=== PATIENT | male | born 1945 | race Caucasian/White ===

== ENCOUNTER 2018-07-06 13:07 | Day surgery (SDC) | END 2018-07-06 14:47 | disposition home or self-care (01) ==

== ENCOUNTER 2019-01-26 06:09 | Day surgery (SDC) | payer MEDICARE, BC ==
[2019-01-26] VITALS (15 sets, daily range): BP systolic 130–157; BP diastolic 63–87; PULSE 62–72; RESP 14–18; Ht 170.2 cm; Wt 74.0 kg
[~2019-01-26] VITALS: Ht 170.2 cm; Wt 74.0 kg
--- NOTE | 2019-01-26 07:12 | HPN ---
Date/Time of Note Date/Time of Note DATE: 01/26/19 TIME: 07:12 Interval H&P Admission Note Pt. seen H&P reviewed: No system changes GWEN TUTTLE MD Jan 26, 2019 07:12
[2019-01-26] MEDS ORDERED: THROMBIN 5000 UNIT VIAL ONE (07:23)
[2019-01-26] MEDS ORDERED: GELATIN SIZE 100 SPONGE ONE (07:23)
[2019-01-26] MEDS ORDERED: LIDOCAINE 1% (MPF) 30 ML INJ ONE (07:24)
[2019-01-26] MEDS ORDERED: HEPARIN 1000 UNITS/ML 10 ML INJ ONE (07:24)
[2019-01-26] MEDS ORDERED: SEVE800T23 ORAL (07:28)
[2019-01-26] MEDS ORDERED: METO-335 ORAL (07:28)
[2019-01-26] MEDS ORDERED: SIMV20TA PO (07:28)
[2019-01-26] MEDS ORDERED: FURO80TA3 ORAL (07:28)
[2019-01-26] MEDS ORDERED: FOLI1CAP PO (07:28)
[2019-01-26] MEDS ORDERED: ESOM20CA PO (07:29)
[2019-01-26] MEDS ORDERED: HEPARIN 1000 UNITS/ML 10 ML INJ IRR ONE (07:30)
--- NOTE | 2019-01-26 07:54 | PREAC ---
Date/Time of Note Date/Time of Note DATE: 01/26/19 TIME: 07:53 Anesthesia Eval and Record Evaluation Time Pre-Procedure Interview DATE: 01/26/19 TIME: 07:53 Age 73 Sex male NPO: 8 hrs Preoperative diagnosis ESRD Planned procedure AV Fistula Past Medical History Past Medical History: Includes Cardio: HTN, Dyslipidemia, CAD, Other (AVR) Musculoskeletal: Osteoarthritis GI: GERD Surgery & Anesthesia Issues No known issue Meds Anticoagulation: No Beta Emery within 24 hr: No Reason Beta Emery not given: Pt. not on B-Emery Reported Medications Esomeprazole Mag Trihydrate (Nexium) 20 Mg Capsule.dr, 20 MG PO DAILY, #30 CAP 01/26/19 Folic Acid/Vitamin B Comp W-C (Nephrocaps Capsule) 1 Mg Capsule, 1 MG PO DAILY, CAP 01/26/19 Simvastatin* (Zocor*) 20 Mg Tablet, 20 MG PO QHS, #30 TAB 01/26/19 Sevelamer Carbonate (Sevelamer Carbonate) 800 Mg Tablet, 1 TAB ORAL WITH MEALS 01/26/19 Furosemide* (Furosemide*) 80 Mg Tablet, 40 MG ORAL DAILY 01/26/19 Metoprolol Succinate* (Toprol XL*) 25 Mg Tab.sr.24h, 1 TAB ORAL QAM 01/26/19 Meds reviewed: Yes Allergies Coded Allergies: No Known Allergy (Verified , 01/26/19) Allergies Reviewed: Yes Labs/Studies Labs Reviewed: Reviewed by anesthesiologist Result Diagram: 01/26/19 0632 01/26/19 0632 Laboratory Tests 01/26/19 06:32 test: N/A Studies: ECG Pre-procedure Exam Last vitals Vital Signs Date Temp Pulse Resp B/P (MAP) Pulse Ox O2 O2 Flow FiO2 Time Delivery Rate 01/26/19 98.6 66 18 154/84 99 Room Air 07:00 (107) Airway: Adequate mouth opening, Adequate thyromental dist Mallampati: Mallampati II Teeth: Normal Lung: Normal Heart: Normal ASA Physical Status ASA physical status: 3 Emergency: None Planned Anesthetic General/MAC: Mask, ETT, LMA, MAC Pre-operative Attestations Prior to commencing anesthesia and surgery, the patient was re-evaluated, there was verification of: *The patient's identity *The results of appropriate recent lab work and preoperative vital signs *The above evaluation not changing prior to induction *Anesthetic plan, risk benefits, alternative and complications discussed with patient/family; questions answered; patient/family understands, accepts and wishes to proceed. FELECIA MCKEON Jan 26, 2019 07:54
[2019-01-26] MEDS ORDERED: METO-335 PO (07:57)
[2019-01-26] MEDS ORDERED: FENTAnyl 50 MCG/ML VIAL IV PRN ×2 (08:00)
[2019-01-26] MEDS ORDERED: ONDANSETRON 4 MG INJ IV PRN (08:00)
[2019-01-26] MEDS ORDERED: METOCLOPRAMIDE 10 MG INJ IV PRN (08:00)
[2019-01-26] MEDS ORDERED: HYDROmorphONE 1 MG/5 ML IV SYRINGE IV PRN ×3 (08:00)
[2019-01-26] MEDS ORDERED: DIPHENHYDRAMINE 50 MG INJ IV PRN (08:00)
[2019-01-26] MEDS ORDERED: ALBUTEROL 0.083% (NEB) 2.5 MG/3 ML AMP HHN PRN (08:00)
[2019-01-26] MEDS ORDERED: MIDAZOLAM 1 MG/ML 2 ML INJ ONE (08:06)
[2019-01-26] MEDS ORDERED: SUCCINYLCHOLINE CHLORIDE 100 MG/5 ML SYG IV ONE (08:46)
[2019-01-26] MEDS ORDERED: LIDOCAINE 100 MG SYRINGE ONE (08:46)
[2019-01-26] MEDS ORDERED: ROCURONIUM 50 MG INJ ONE (08:46)
[2019-01-26] MEDS ORDERED: SUGAMMADEX SODIUM 200 MG/2 ML VIAL IV ONE (08:46)
[2019-01-26] MEDS ORDERED: CEFAZOLIN 1 GM INJ ONE (08:46)
[2019-01-26] MEDS ORDERED: PROPOFOL 20 ML ONE (08:46)
[2019-01-26] MEDS ORDERED: FENTAnyl 50 MCG/ML VIAL ONE (09:39)
--- NOTE | 2019-01-26 09:41 | SIPON ---
Date/Time of Note Date/Time of Note DATE: 01/26/19 TIME: 09:40 Operative Report Preoperative Diagnosis ESRD, non functional L arm AVF Postoperative Diagnosis same Operation/Procedure Performed thrombectomy and revision of left arm AVF Surgeon see signature line scheduling assistant LUZ Lyon Anesthesia: general Estimated blood loss: 50 - 100 ml's Transfusion Required none Specimen AVF thrombus Grafts/Implants none Complications none GWEN TUTTLE MD Jan 26, 2019 09:41
--- NOTE | 2019-01-26 10:26 | OPR ---
DATE OF OPERATION: 01/26/2019 PREOPERATIVE DIAGNOSIS: Left arm arteriovenous fistula malfunction. POSTOPERATIVE DIAGNOSIS: Left arm arteriovenous fistula malfunction. PROCEDURE PERFORMED: Thrombectomy and revision of left arm AV fistula. SURGEON: Gwen Martini MD ANESTHESIA: General endotracheal anesthesia. ESTIMATED BLOOD LOSS: 100 mL. COMPLICATIONS: There were no intraprocedural complications. 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 He is otherwise healthy. He has a left arm AV fistula created about a year ago and He has had m ultiple problems with it. 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 It act ually previously was recommended revising it to swing the cephalic vein down to the axillary vein to prevent problems in the future, but he wanted to keep using it and it was functioning and then occlud ed about 3 weeks ago. I was able to partially open it. I could not get really adequate flow. It st ill has flow through it. There is still a lot of clot in the pseudoaneurysms in the mid portion of t he upper arm and the central portion that remains is fairly stenotic and full of thrombus. I put him on Eliquis. He has Perm-A-Cath. I recommended to bring him in today for surgical revision. I meka silva all the thrombus from the mid-arm pseudoaneurysms and then dissected the cephalic vein up to the shoulder and then swung that and ligated it there and swung the vein down to the axillary vein to jum p around the cephalic arch stenosis and that is what we did. DESCRIPTION OF PROCEDURE: Patient was brought to the operating room and placed on the table in supin e position. Left arm was prepped and draped in the usual sterile fashion. I used ultrasound to eval uate the fistula at the arterial anastomosis and the fistula up to the mid-arm was widely patent with no thrombus and there are 2 large pseudoaneurysms in the mid upper arm that were full of thrombus an d the vein above that looked good up to the shoulder and then there was thrombus again. I marked all these areas on the skin. I also marked the axillary vein in the mid upper arm and on the skin. The n, when he was prepped and draped in the usual sterile fashion, I began by making an incision over th e cephalic vein beginning in the mid arm and extending up to the shoulder and I dissected it out circ umferentially. I ligated it distally, just about the shoulder and oversewed it with 5-0 Prolene sutu re and after clamping the vein lower down, I then made a counter incision in the lower part of the up per arm over the fistulous transversely to get control of the fistula at this level. I dissected it out there and then clamped it. I then made an incision over the axillary vein in the upper arm. In the medial upper arm I dissected down through subcutaneous tissues with electrocautery. I dissected out the axillary vein, it was a good caliber vein. It was healthy. I then went back to the cephali c vein. I removed all the thrombus from the mid upper arm pseudoaneurysm, squeezing the vein, I put Fogerty's in, and put the suction down in there. I removed all the thrombus, it came out and the vei n was aneurysmal there but patent and without residual thrombus. I then tunneled the end of that cep halic vein between the 2 incisions in the upper arms using an Adson clamp and brought the vein throug h the tract. I then clamped the axillary vein proximally and distally, made about 1.5 cm long venoto my and anastomosed the end of the cephalic vein to the side of the axillary vein using 5-0 Prolene pino ture in a running standard vascular surgical fashion. I removed the clamps. There was an excellent thrill and there was good hemostasis. I checked, there was a good radial pulse. I then closed all t he skin incisions in 2 layers using an inner layer of 3-0 Vicryl and an outer layer of 4-0 Monocryl s ubcuticular suture. Sterile dressing was applied. Patient was extubated in the operating room and t ransferred to the recovery room in stable condition. He tolerated the procedure well without any com plications. Dictated By: GWEN TELLES/WISAM Conf#: [id number] DID#: [id number] CC: RICARDO MALONE MD;*EndCC*
--- NOTE | 2019-01-26 13:10 | PAC ---
Date/Time of Note Date/Time of Note DATE: 01/26/19 TIME: 13:10 Post-Anesthesia Notes Post-Anesthesia Note Last documented vital signs Vital Signs Date Temp Pulse Resp B/P (MAP) Pulse Ox O2 O2 Flow FiO2 Time Delivery Rate 01/26/19 68 14 137/70 97 Room Air 11:03 (92) 01/26/19 2.0 10:43 01/26/19 98.2 10:25 Activity: WNL Respiratory function: WNL Cardiovascular function: WNL Mental status: Baseline Pain reasonably controlled: Yes Hydration appropriate: Yes Nausea/Vomiting absent: Yes FELECIA MCKEON Jan 26, 2019 13:10
--- NOTE | 2019-01-26 15:07 | RADRPT ---
Vent Rate: 61 bpm RR Interval: 984 msec UT Interval: 143 msec QRS Duration: 109 msec QT Interval: 392 msec QTC Interval: 395 msec P-R-T [place]: 34 - 79 - 49 degrees Sinus rhythm...normal P axis, V-rate 50- 99 Abnrm R prog, consider ASMI or lead placement...Q >30mS, diminished R, V1-V2 Electronically Signed By: David Najera
== END 2019-01-26 11:45 | disposition home or self-care (01) ==
LOC: SDS 06:09
PROVIDERS: ATTEND Surgery Vascular Surgery
DX: T82.590A Other mechanical complication of surgically created arteriovenous fistula, initial encounter (principal); Y84.1 Kidney dialysis as the cause of abnormal reaction of the patient, or of later complication, without mention of misadventure at the time of the procedure; I12.0 Hypertensive chronic kidney disease with stage 5 chronic kidney disease or end stage renal disease; N18.6 End stage renal disease; I25.10 Atherosclerotic heart disease of native coronary artery without angina pectoris; E78.5 Hyperlipidemia, unspecified
CPT/HCPCS: 36833; 71045; 80053; 85025; 85610; 85730; 88304; 93005; J0690; J1170; J1644; J2001; J2250; J2405; J2765; J3010